=== PATIENT | male | born 1965 | race Caucasian/White ===

== ENCOUNTER 2019-05-25 12:49 | Inpatient (IN) | payer OTHER ==
[~2019-05-25] VITALS: Ht 185.4 cm; Wt 126.3 kg
[2019-05-25 12:52] VITALS: BP 154/75
[2019-05-25 13:09] LABS: BASO # 0.1 10*3/uL (0.0-0.1); BASO % 0.9 % (0.0-1.0); EOS # 0.1 10*3/uL (0.0-0.4); EOS % 0.5 % (1.0-4.0); HEMOGLOBIN 16.2 g/dl (14.0-18.0); LYMPH # 2.3 10*3/uL (1.3-4.4); LYMPH % 20.9 % (27.0-41.0); MEAN CELL VOLUME 101.5 fl (80.0-94.0); MEAN CORPUSCULAR HGB CONC 34.5 g/dl (33.0-37.0); MEAN PLATELET VOLUME 10.5 fl (9.6-12.3); MONO # 0.8 10*3/uL (0.1-1.0); MONO % 7.3 % (3.0-9.0); NEUT # 7.6 10*3/uL (2.3-7.9); NEUT % 69.8 % (47.0-73.0); PLATELET COUNT AUTOMATED 224 10*3/uL (130-400); RED BLOOD COUNT 4.63 10*6/uL (4.50-5.90); WHITE BLOOD COUNT 10.8 10*3/uL (4.8-10.8)
[2019-05-25 13:20] LABS: ACT PARTIAL THROMBO TIME 25.5 SECONDS (20.0-32.1); INTERNATIONAL NORM RATIO 0.9 (2.0-3.5)
[2019-05-25 13:26] LABS: ALBUMIN 3.9 gm/dl (3.1-4.5); ALKALINE PHOSPHATASE 66 U/L (45-117); BUN 17 mg/dl (7-24); CHLORIDE 104 mmol/L (98-107); CREATININE 1.04 mg/dL (0.70-1.30); SGOT/AST 29 IU/L (3-35); SGPT/ALT 48 U/L (12-78); SODIUM 137 mmol/L (136-145); TOTAL PROTEIN 7.4 gm/dL (6.4-8.2)
[2019-05-25 13:27] LABS: TROPONIN I < 0.015 ng/ml (<0.045)
[2019-05-25 15:15] VITALS: BP 134/80
--- NOTE | 2019-05-25 15:15 | NUR ---
53 year old MALE admitted to room # 521 for stabilization. Reports an addiction to ALCOHOL last used 8 hours prior to admission. Compliant with admission procedure. Patient denies any anxiety, but is unable to sit still, taps toes to floor continuously, looks about room, unable to focus eyes on nurse during interview. See assessment forms for additional information about patient status.
--- NOTE | 2019-05-25 15:30 | NUR ---
DR. AMEZCUA NOTIFIED OF PT'S MED REC UTD.
[2019-05-25] MEDS ORDERED: SERTRALINE HYDR50 MG PO (15:34)
[2019-05-25] MEDS ORDERED: PREDNISONE20 M1 PO (15:35)
[2019-05-25] MEDS ORDERED: SIMVASTATIN40 MG PO (15:35)
[2019-05-25] MEDS ORDERED: LOPRESSOR50 M1 PO (15:37)
[2019-05-25] MEDS ORDERED: ZESTORETIC 20-1 EACH PO (15:37)
--- NOTE | 2019-05-25 16:02 | NUR ---
[place] STAFF SPOKE WITH PATIENT. PATIENT MEETS [facility]. PATIENT WANTS TO FOLLOW UP WITH OUTPATIENT TREATMENT. [place] STAFF WILL FOLLOW UP WITH PATIENT WITH REFERRAL OPTIONS. MARVIN DIETRICH B.A. CHILD DEVELOPMENT TEACHER
--- NOTE | 2019-05-25 16:07 | NUR ---
SECURITY TOOK PT'S BELONGINGS AND PLACED IN ROOM 155.
[2019-05-25 17:01] LABS: BILIRUBIN NEGATIVE (NEGATIVE); BLOOD NEGATIVE (NEGATIVE); CLARITY CLEAR (CLEAR); COLOR YELLOW (YELLOW); GLUCOSE NEGATIVE (NEGATIVE); KETONE NEGATIVE (NEGATIVE); LEUKO ESTERASE NEGATIVE (NEGATIVE); NITRITE NEGATIVE (NEGATIVE); SPECIFIC GRAVITY 1.015 (1.005-1.030); UROBILINOGEN 0.2 E.U./dl (0.2-1.0)
[2019-05-25 17:08] LABS: EPITHELIAL CELLS 0-2
[2019-05-25 17:10] LABS: URINE AMPHETAMINES < 1000 (1000ng/ml); URINE BARBITURATES < 200 (200ng/ml); URINE BENZODIAZEPINES < 200 (200ng/ml); URINE CANNABINOIDS (THC) < 50 (50ng/ml); URINE COCAINE < 300 (300ng/ml); URINE METHADONE < 300 (300ng/ml); URINE OPIATES < 300 (300ng/ml); URINE PHENCYCLIDINE < 25 (25ng/ml)
[2019-05-25 20:00] VITALS: BP 105/65
--- NOTE | 2019-05-25 21:00 | NUR ---
PT RESTING QUIETLY IN BED. NO C/O VOICED AT PRESENT TIME. CALL LIGHT IN REACH.
[2019-05-26] VITALS: BP 109/63
--- NOTE | 2019-05-26 02:17 | NUR ---
DR DIXON CALLED, PATIENT'S HR DROPPED TO 25 BMP, RUNNING 30'S-60'S ON CM. PATIENT WOKE UP. PATIENT DOES NOT APPEAR TO BE IN ANY DISTRESS. PERIODS OF APNEA OBSERVED 15-20 SECONDS PERIODS. PATIENT STATES THAT HE IS AWARE THAT HE HAS SLEEP APNEA AND REFUSES TO WEAR CPAP MACHINE AT HOME OR HERE IN HOSPITAL. TO FOLLOW UP WITH PATIENT.
--- NOTE | 2019-05-26 04:13 | NUR ---
PT SPO2 87-88% ON ROOM AIR WHILE SLEEPING. PATIENT PLACE ON 2LNC. WILL MONITOR. CALLED AND MADE DR DIXON AWARE.
--- NOTE | 2019-05-26 06:00 | NUR ---
PATIENT REQUESTING MEDICATION FOR MUSCLES ACHES AND STOMACH CRAMPING. ROBAXIN, BENTYL, AND VISTARIL ADMINISTERED PRESCRIBED. WILL MONITOR.
[2019-05-26 08:00] VITALS: BP 130/80
[2019-05-26 12:00] VITALS: BP 128/76
--- NOTE | 2019-05-26 14:51 | NUR ---
PT HEART RATE DROPPED TO 24 ON TELEMETRY WHILE PT SLEEPING. PT AWOKEN WITH NO SYMPTOMS NOTED BY HIM. PT STATES HE DOES HAVE SLEEP APNEA AND WAS ORDERED A BIPAP APPROX 18 YEARS AGO BUT WAS UNABLE TO TOLERATE WEARING IT. DR CHAVEZ NOTIFIED AND NEW ORDERS RECEIVED.
--- NOTE | 2019-05-26 15:00 | NUR ---
DR Samantha LINARES NOTIFIED OF NEW CONSULT ORDER.
[2019-05-26 15:28] LABS: ALBUMIN 3.5 gm/dl (3.1-4.5); ALKALINE PHOSPHATASE 62 U/L (45-117); BUN 14 mg/dl (7-24); CHLORIDE 104 mmol/L (98-107); CREATININE 0.96 mg/dL (0.70-1.30); PHOSPHOROUS 3.4 mg/dL (2.5-4.9); POTASSIUM 3.8 mmol/L (3.5-5.1); SGOT/AST 35 IU/L (3-35); SGPT/ALT 54 U/L (12-78); SODIUM 138 mmol/L (136-145); TOTAL PROTEIN 6.4 gm/dL (6.4-8.2)
[2019-05-26 15:32] LABS: TROPONIN I < 0.015 ng/ml (<0.045)
[2019-05-26 16:00] VITALS: BP 128/72
--- NOTE | 2019-05-26 16:21 | NUR ---
PATIENT WANTS TO FOLLOW UP WITH [facility] FOR INTENSIVE OUTPATIENT TREATMENT. MARVIN DIETRICH B.A. OXIDE FURNACE TENDER
[2019-05-26 20:00] VITALS: BP 122/64; BP 124/73
--- NOTE | 2019-05-26 23:11 | NUR ---
PLACED PATIENT ON BIPAP 16/10, 35% FIO2. PULSE OX IN USE
[2019-05-27] VITALS: BP 105/66
--- NOTE | 2019-05-27 00:50 | NUR ---
PATIENT WANTS BIPAP OFF AT THIS TIME. PLACED ON 3LNC AT THIS TIME. HR REMAINED IN THE 50'S WHILE ON BIPAP AND SPO2 ABOVE95%.WILL CONTINUE TO MONITOR.
--- NOTE | 2019-05-27 00:54 | NUR ---
24 HR chart check completed.
--- NOTE | 2019-05-27 02:09 | NUR ---
PATIENT SPO2 79%-98% WHEN SLEEPING. PATIENT HAS PERIODS OF APNEA LASTING 15-25 SECONDS. HR YUDELKA TO 30'S WHEN SLEEPING. PATIENT ENCOURAGED TO PUT BIPAP MASK BACK ON, PATIENT STATES THAT HE "CAN NOT STAND IT ON HIS FACE" AND THAT HE DOES NOT WANT TO WEAR IT. REMAINS ON 3LNC. CONTINUE MONITORING HR AND PULSE OX.
[2019-05-27 12:00] VITALS: BP 126/79
--- NOTE | 2019-05-27 15:05 | NUR ---
PATIENT'S DISCHARGE REMAINS THE SAME. PATIENT WILL FOLLOW UP WITH [facility] FOR HIS AFTERCARE PLAN. [place] STAFF WILL FOLOW UP WITH PATIENT WITH DATE AND TIME OF APPOINTMENT. MARVIN DIETRICH B.A. PUBLIC IMPROVEMENT INSPECTOR
[2019-05-27 16:00] VITALS: BP 139/86
[2019-05-27 20:00] VITALS: BP 121/69
[2019-05-28] VITALS: BP 129/75
--- NOTE | 2019-05-28 03:02 | NUR ---
24 HR chart check completed.
[2019-05-28 08:00] VITALS: BP 122/68
[2019-05-28 12:00] VITALS: BP 134/88
--- NOTE | 2019-05-28 14:15 | NUR ---
BELONGINGS RETURNED TO PATIENT BY SECURITY. PT AMBULATED OFF THE FLOOR TO PRIVATE CAR.
--- NOTE | 2019-05-28 14:35 | NUR ---
PATIENT IS GOING TO [facility] FOR HIS AFTERCARE PLAN. [place] STAFF REVIEWED WALK-IN ASSESSMENT TIMES WITH PATIENT. PATIENT AGREES AND UNDERSTANDS HIS AFTERCARE PLAN. MARVIN DIETRICH B.A. CAREER INFORMATION SPECIALIST
== END 2019-05-28 14:15 | disposition home or self-care (01) | DRG 897 ==
LOC: ED 12:49 → EDHOLD 13:46 → 5E 13:46 → EDHOLD 14:00 → 5E 15:10
PROVIDERS: Emergency Medicine; Student in an Organized Health Care Education/Training Program; ADMIT Internal Medicine
DX: F10.239 Alcohol dependence with withdrawal, unspecified (principal); D75.89 Other specified diseases of blood and blood-forming organs; I10 Essential (primary) hypertension; R00.1 Bradycardia, unspecified; E78.5 Hyperlipidemia, unspecified; E66.9 Obesity, unspecified; R73.9 Hyperglycemia, unspecified; F32.9 Major depressive disorder, single episode, unspecified; F17.210 Nicotine dependence, cigarettes, uncomplicated; G47.33 Obstructive sleep apnea (adult) (pediatric); I44.1 Atrioventricular block, second degree; I45.5 Other specified heart block; Z82.49 Family history of ischemic heart disease and other diseases of the circulatory system; Z79.899 Other long term (current) drug therapy; Z91.19 Patient's noncompliance with other medical treatment and regimen; Z71.6 Tobacco abuse counseling; Z68.36 Body mass index [BMI] 36.0-36.9, adult